=== PATIENT | female | born 1975 | race Caucasian/White ===

== ENCOUNTER 2017-02-01 08:31 | Day surgery (SDC) | payer BC ==
[~2017-02-01] VITALS: Ht 182.9 cm; Wt 83.9 kg
--- NOTE | ~2017-02-01 | OP ---
PATIENT NAME: JACINTO ALEJO MEDICAL RECORD: [id number] :77 [facility] DATE: SURGEON: AZEEM DOW MD DATE OF OPERATION: 02/01/2017 PREOPERATIVE DIAGNOSIS: Hyperparathyroidism. POSTOPERATIVE DIAGNOSIS: Parathyroid adenoma. PROCEDURE: Parathyroidectomy. SURGEON: Azeem Dow MD ANESTHESIA: General orotracheal. BLOOD LOSS: Less than 5 cc. SPECIMENS: Left inferior parathyroid adenoma 1-1/2cm frozen section positive for consistent with parathyroid adenoma. DRAINS: None. COMPLICATIONS: None. DISPOSITION: Recovery stable. DESCRIPTION OF PROCEDURE: She is brought to the operating room and placed in supine position, sedated and intubated by anesthesia. The eyes were taped. She was positioned, prepped and draped for parathyroid surgery. The skin incision was chosen marked and injected with less than 1 cc of 1% lidocaine with 1:1000 epinephrine. A skin incision was made with a 15 blade. This was taken down to the ____. Flaps were developed inferior and superiorly and the fascia was divided in the midline, the strap muscles, exposing the isthmus of the thyroid and the trachea. The left side was dissected first because of the ultrasound findings of a left inferior mass, possibly a parathyroid. The inferior lobe of the thyroid was dissected out and carefully dissection inferiorly exposed a mass consistent with a parathyroid adenoma. It was dissected out, it was completely clean around smoothed, was not adherent to any surrounding tissue, was easily dissected out, just a small stalk was divided after bipolar cautery. This was sent for frozen and consistent with a parathyroid adenoma, was about 1.5 cm in largest dimension. Dissection superiorly on the left side and inferiorly on the right side, it did not identify any enlarged parathyroid tissue at all. There was quite a bit of adipose tissue in the area and all of adipose tissue was actually fairly caramel color consistent with parathyroid tissue, a very similar color. The thyroid gland was normal without nodules. There was really no significant bleeding. The wound was irrigated carefully inspected and strap muscles were reapproximated in the midline loosely with a 3-0 Vicryl, platysma later was closed with interrupted 3-0 Vicryl. The skin was closed with running subcuticular 6-0 Prolene. She was awakened, extubated, and transported to recovery in good condition. No complications. TRANSINT:[id number] Voice Confirmation ID: [id number] DOCUMENT ID: [id number] OPERATIVE REPORT [id number] JACINTO AELJO ERIC MD CC: [id number] DICTATION DATE: 02/01/171727 SLASHER HAND: 02/02/17221 [facility] 02/01/17 [place] [id number] [place] [id number]
--- NOTE | ~2017-02-01 | HP ---
PATIENT: WALLY ALEJO MEDICAL RECORD: [id number] ACCOUNT: [id number] [facility] 77 ADMISSION DATE: 02/01/17 HISTORY AND PHYSICAL EXAMINATION HISTORY OF PRESENT ILLNESS: Wally was sent over by Dr. Robins. She is a 41-year-old female with hyperparathyroidism. She has been noted to have elevated calcium on multiple occasions as well as elevated parathyroid hormone. This was found on workup of recurrent kidney stones. She has been admitted for parathyroidectomy. PAST MEDICAL HISTORY: Includes multiple C-sections, multiple kidney stones and lithotripsy. CURRENT MEDICATIONS: Iron. ALLERGIES: OPIATES, ZOFRAN AND PHENERGAN. PHYSICAL EXAMINATION: GENERAL: A healthy-appearing female, developmentally normal. FACE: Normal, symmetric, no lesions. EYES: Sclerae and conjunctivae are normal. EARS: Canals and TMs are normal. NOSE: No mass, polyps, or drainage. ORAL CAVITY AND OROPHARYNX: Tongue protrudes in the midline. Pharynx is normal. NECK: No masses, no adenopathy, nothing obviously palpable on the thyroid. CHEST: Clear. CARDIOVASCULAR: Regular rate and rhythm, no murmur. EXTREMITIES: Normal. IMAGING STUDIES: Ultrasound showed a 1.7-cm mass near the inferior pole of the left thyroid, consistent with the possibility of a parathyroid adenoma there. Her PTH was greater than 135 with a calcium of 11. IMPRESSION: Hyperparathyroidism. PLAN: Parathyroidectomy. TRANSINT:[id number] Voice Confirmation ID: [id number] DOCUMENT ID: [id number] JOSSELYN BINGHAM MD CC: [id number] DICTATION DATE: 01/28/17 164 VETERINARIAN: 01/28/171912 [facility] [address] [place] [id number]
[~2017-02-01 08:31] MED LIST: INFED50 MG/ML IV
[2017-02-01 10:12] LABS: HEMATOCRIT 38.8 % (36.0-48.0); HEMOGLOBIN 12.2 g/dL (12-16); MCH 29.3 pg (26.0-34.0); MCHC 31.4 g/dL (31.0-37.0); MEAN PLATELET VOLUME 12.3 fL (7.4-10.4); RBC 4.17 10x6/uL (4.00-5.40); RDW 15.4 % (11.5-14.5); WBC 5.1 10x3/uL (4.8-10.8)
[2017-02-01 10:22] VITALS: BP 96/58; Ht 182.9 cm; Wt 83.9 kg
--- NOTE | 2017-02-01 15:54 | NUR ---
UNABLE TO REACH FAMILY FOR UPDATE
--- NOTE | 2017-02-01 19:17 | NUR ---
1900 DC INSTS. REVIEWED, RX GIVEN, RELEASED IN WC, [employer].
== END 2017-02-01 19:00 | disposition home or self-care (01) ==
LOC: D.OPS 08:31 → D.PAN 10:00 → D.OPS 10:30 → D.PAN 02-15 07:30
PROVIDERS: Anesthesiology
DX: D35.1 Benign neoplasm of parathyroid gland (principal); Z01.812 Encounter for preprocedural laboratory examination

== ENCOUNTER 2017-02-04 09:08 | Emergency (ER) | payer BC ==
[2017-02-01 10:22] VITALS: BMI 25.1
[2017-02-04 09:44] LABS: BASOPHILS 0.2 % (0-2); EOSINOPHILS 4.5 % (0-7); HEMATOCRIT 35.8 % (36.0-48.0); HEMOGLOBIN 11.2 g/dL (12-16); IMMATURE GRANULOCYTES 0.2 % (0-5); LYMPHOCYTES 31.9 % (15-50); MCH 29.6 pg (26.0-34.0); MCHC 31.3 g/dL (31.0-37.0); MCV 94.5 fL (80.0-100.0); MEAN PLATELET VOLUME 11.9 fL (7.4-10.4); MONOCYTES 10.6 % (2-11); NEUTROPHILS 52.6 % (40-80); PLATELET COUNT 162 10x3/uL (130-400); RBC 3.79 10x6/uL (4.00-5.40); RDW 15.1 % (11.5-14.5); WBC 4.9 10x3/uL (4.8-10.8)
[2017-02-04 10:03] LABS: ALBUMIN 3.4 g/dL (3.4-5.0); ANION GAP 11.8 mmol/L (8-16); BILIRUBIN - TOTAL 0.44 mg/dL (0.2-1.3); CALCIUM 8.8 mg/dL (8.5-10.1); CARBON DIOXIDE 27.2 mmol/L (21.0-32.0); CREATININE - SERUM 0.9 mg/dL (0.6-1.3); PROTEIN - SERUM 7.1 g/dL (6.4-8.2)
== END 2017-02-04 11:45 | disposition home or self-care (01) ==
LOC: D.ER 09:08
PROVIDERS: Emergency Medicine
DX: R20.0 Anesthesia of skin (principal); Z98.890 Other specified postprocedural states

== ENCOUNTER → 2017-02-08 15:51 | Outpatient (CLI) | payer BC ==
[2017-02-01 10:22] VITALS: BMI 25.1
[2017-02-08 17:18] LABS: CALCIUM 9.6 mg/dL (8.5-10.1); MAGNESIUM - SERUM 1.8 mg/dL (1.8-2.4); PHOSPHOROUS 3.7 mg/dL (2.5-4.9)
== END | disposition home or self-care (01) ==
LOC: D.LAB 15:51
PROVIDERS: Otolaryngology
DX: E83.51 Hypocalcemia (principal)

== ENCOUNTER 2017-09-10 08:05 | Emergency (ER) | payer BC ==
[2017-02-01 10:22] VITALS: BMI 25.1
[2017-09-10 08:47] LABS: APPEARANCE SLT CLOUDY (CLEAR); BACTERIA MANY /hpf (NONE SEEN); BILIRUBIN NEGATIVE (NEGATIVE); COLOR YELLOW (YELLOW); EPITHELIAL CELLS 0-5 /hpf (0-5); GLUCOSE NEGATIVE (NEGATIVE); KETONE NEGATIVE (NEGATIVE); MUCUS >1+ /lpf (NONE SEEN); NITRITE NEGATIVE (NEGATIVE); PROTEIN NEGATIVE (NEGATIVE); RED CELLS - URINE RARE /hpf (0-5); UROBILINOGEN NORMAL (NORMAL)
== END 2017-09-10 09:47 | disposition home or self-care (01) ==
LOC: D.ER 08:05
PROVIDERS: Emergency Medicine
DX: N39.0 Urinary tract infection, site not specified (principal)

== ENCOUNTER 2019-03-21 14:30 | Outpatient (CLI) | payer BC ==
[2017-02-01 10:22] VITALS: BMI 25.1
== END 2019-03-21 15:00 | disposition home or self-care (01) ==
LOC: D.MAMMO 14:30
PROVIDERS: ATTEND Family Medicine
DX: Z12.31 Encounter for screening mammogram for malignant neoplasm of breast (principal)